=== PATIENT | female | born 1950 | race Two or more races ===

== ENCOUNTER 2020-07-05 10:09 | Emergency (ER) | payer OTHER ==
[~2020-07-05] VITALS: Ht 160 cm; Wt 64.9 kg
[~2020-07-05 10:09] MED LIST: AMBIEN10 MG PO; AVALIDE 300-12.1 TAB PO; MICRO-K10 MEQ PO; NORVASC5 MG PO; PRAVASTATIN SOD20 MG PO; PREVACID30 MG PO; SYNTHROID100 MCG PO
[2020-07-05] MEDS ORDERED: DICLOXACILLIN250 MG PO (12:29)
[2020-07-05] MEDS ORDERED: KETO10TA2 PO (12:29)
== END 2020-07-05 12:37 | disposition home or self-care (01) ==
LOC: ER 10:09
DX: N76.4 Abscess of vulva (principal); M17.11 Unilateral primary osteoarthritis, right knee; M25.561 Pain in right knee

== ENCOUNTER 2021-07-17 17:23 | Emergency (ER) | payer OTHER ==
[~2021-07-17] VITALS: Ht 160 cm; Wt 63.5 kg
[~2021-07-17 17:23] MED LIST changes: +DICLOXACILLIN250 MG PO; +KETO10TA2 PO
[2021-07-17] MEDS ORDERED: CYCLOBENZAPRINE10 MG PO (18:15)
[2021-07-17] MEDS ORDERED: HORIZANT300 MG (18:16)
[2021-07-17] MEDS ORDERED: SYNTHROID112 MCG PO (18:16)
[2021-07-17] MEDS ORDERED: APETIGEN L790 MG/15 PO (21:27)
== END 2021-07-17 21:31 | disposition home or self-care (01) ==
LOC: ER 17:23
DX: E03.8 Other specified hypothyroidism (principal); R53.81 Other malaise; R53.1 Weakness; I10 Essential (primary) hypertension; Z20.822 Contact with and (suspected) exposure to COVID-19

== ENCOUNTER 2021-11-15 18:41 | Emergency (ER) | payer OTHER ==
[~2021-11-15] VITALS: Ht 160 cm; Wt 64.4 kg
[~2021-11-15 18:41] MED LIST changes: +APETIGEN L790 MG/15 PO; +CYCLOBENZAPRINE10 MG PO; +HORIZANT300 MG; +SYNTHROID112 MCG PO
== END 2021-11-15 20:13 | disposition home or self-care (01) ==
LOC: ER 18:41
DX: R07.89 Other chest pain (principal); R07.81 Pleurodynia; I10 Essential (primary) hypertension

== ENCOUNTER 2022-02-09 08:49 | Emergency (ER) | payer OTHER ==
[~2022-02-09] VITALS: Ht 160 cm; Wt 68.0 kg
[2022-02-09] MEDS ORDERED: IRBESARTAN300 MG PO (09:04)
[2022-02-09] MEDS ORDERED: ALDACTONE25 MG PO (09:05)
[2022-02-09] MEDS ORDERED: NIFEDIPINE20 MG PO (09:05)
[2022-02-09] MEDS ORDERED: CRESTOR10 MG PO (09:06)
== END 2022-02-09 11:36 | disposition home or self-care (01) ==
LOC: ER 08:49
DX: U07.1 COVID-19 (principal); M54.50 Low back pain, unspecified; B34.8 Other viral infections of unspecified site

== ENCOUNTER 2022-03-14 10:06 | Emergency (ER) | payer OTHER ==
[~2022-03-14] VITALS: Ht 157.5 cm; Wt 64.9 kg
[~2022-03-14 10:06] MED LIST changes: +ALDACTONE25 MG PO; +CRESTOR10 MG PO; +IRBESARTAN300 MG PO; +NIFEDIPINE20 MG PO
== END 2022-03-14 13:18 | disposition home or self-care (01) ==
LOC: ER 10:06
DX: T54.91XA Toxic effect of unspecified corrosive substance, accidental (unintentional), initial encounter (principal); Y92.9 Unspecified place or not applicable